=== PATIENT | female | born 1950 | race Caucasian/White ===

== ENCOUNTER → 2024-07-17 13:08 | Outpatient (REF) | payer OTHER, SELFPAY ==
[2024-07-18 15:09] LABS: Mumps Virus IgG Positive; Rubeola (Measles) IgG Positive; Varicella Zoster IgG (VZV) Positive
[2024-07-18 19:48] LABS: Hepatitis B Surface Antibody Positive
[2024-07-18 20:41] LABS: Rubella Positive
== END ==
LOC: REG 13:08
PROVIDERS: ATTENDING PHYSICIAN Nurse Practitioner Family
DX: Z23 Encounter for immunization (principal)
CPT/HCPCS: 36415; 86706; 86735; 86762; 86765; 86787